=== PATIENT | female | born 1985 | race American Indian/Alaskan Native ===

== ENCOUNTER 2016-08-10 10:41 | Emergency (ER) | payer MEDICAID, OTHER ==
[2016-08-10] MEDS ORDERED: MOTRIN PO ONE (14:30)
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
--- NOTE | 2016-08-10 15:14 | XRay Report ---
RIGHT KNEE: The bony architecture is intact without evidence of fracture or dislocation. No significant soft tissue abnormality is seen. IMPRESSION: Normal right knee.
--- NOTE | 2016-08-10 15:21 | XRay Report ---
AP AND LATERAL LUMBOSACRAL SPINE: The vertebral bodies are well mineralized and normal in alignment and vertebral height with well preserved interspace distances. The visualized portions of the posterior elements are normal. IMPRESSION: Normal study.
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
--- NOTE | 2016-08-10 15:22 | XRay Report ---
THORACIC SPINE: The bones are normally mineralized with well preserved vertebral height, alignment and interspace distances. No paraspinal soft tissue widening is noted. IMPRESSION: Normal study.
[2016-08-10 16:21] VITALS: BP 136/70
== END 2016-08-10 16:21 | disposition home or self-care (01) ==
LOC: ED 10:41
DX: R07.89 Other chest pain (principal); M25.561 Pain in right knee; M54.5 Low back pain; K21.9 Gastro-esophageal reflux disease without esophagitis; J45.909 Unspecified asthma, uncomplicated; F17.200 Nicotine dependence, unspecified, uncomplicated; V89.2XXA Person injured in unspecified motor-vehicle accident, traffic, initial encounter; Y92.488 Other paved roadways as the place of occurrence of the external cause; Y93.89 Activity, other specified; Y99.9 Unspecified external cause status; Z91.040 Latex allergy status; Z88.8 Allergy status to other drugs, medicaments and biological substances
CPT/HCPCS: 71111; 72072; 72100